=== PATIENT | female | born 1965 | race Caucasian/White ===

== ENCOUNTER 2019-04-17 10:20 | Emergency (ER) | payer OTHER ==
--- NOTE | 2019-04-17 10:24 | PDOC ---
History of Present Illness - General Chief Complaint: Pain Stated Complaint: PAIN TO RIGHT LOWER QUADRANT ON AND OFF 1 WEEK Time Seen by Provider: 04/17/19 10:23 History Source: Patient Exam Limitations: No Limitations - History of Present Illness Initial Comments: 04/17/19 10:40 Ms. Velasquez is a 54 yo F no significant past medical history presents to the ER with a complaint of abdominal pain. She states her symptoms began nine days ago. Initially pain was sharp, located in the right lower quadrant. She described it as feeling like an "ice pick". Pain was constant for several days and then moved more superiorly and changed in character. She noted more of an achy/discomfort feeling. She notes that she is also gassy. 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 HEAD, EYES, EARS, NOSE AND THROAT: No: change in vision, ear pain, discharge, sore throat, throat swelling. CARDIOVASCULAR: No: chest pain, lightheadedness, palpitations, syncope RESPIRATORY: No: cough, shortness of breath, wheezing, hemoptysis, stridor. GASTROINTESTINAL: (+) abdominal pain No: nausea, vomiting, diarrhea GENITOURINARY: No: dysuria, hematuria, frequency, urgency, flank pain. MUSCULOSKELETAL: No: back pain, neck pain, joint pain, muscle swelling or pain SKIN: No: lesions, pallor, rash or easy bruising. NEUROLOGIC: No: headache, vertigo, paresthesias, weakness ENDOCRINE: No: unexplained weight gain or loss HEMATOLOGIC/LYMPHATIC: No: anemia, easy bleeding, swelling nodes. ABDOMINAL PAIN FEMALE PHYSICAL EXAM GENERAL: The patient is in no acute distress. HEAD: Normal with no signs of trauma. EYES: PERRLA, EOMI, sclera anicteric, conjunctiva clear. ENT: Ears normal, nares patent, oropharynx clear without exudates. Moist mucous membranes. NECK: Normal range of motion, supple without lymphadenopathy, JVD, or masses. LUNGS: Breath sounds equal, clear to auscultation bilaterally. No wheezes, and no crackles. HEART:Regular rate and rhythm, normal S1 and S2 without murmur, rub or gallop. ABDOMEN: (+) right sided abdominal tenderness to palpation, Soft, hypoactive bowel sounds. No guarding, no rebound, no distention EXTREMITIES: Normal range of motion, no edema. No clubbing or cyanosis. No erythema, or tenderness. NEUROLOGICAL: Cranial nerves II through XII grossly intact. Normal speech. No focal neurological deficits. MUSCULOSKELETAL: Back non-tender to palpation, no CVA tenderness SKIN: Warm, Dry, normal turgor, no rashes or lesions noted. 04/17/19 11:05 Past History - Past Medical History Allergies/Adverse Reactions: Allergies Allergy/AdvReac Type Severity Reaction Status Date / Time No Known Allergies Allergy Unverified 04/17/19 10:22 Home Medications: Ambulatory Orders NK [No Known Home Medication] 04/17/19 ED Treatment Course - LABORATORY CBC & Chemistry Diagram: 04/17/19 11:04 04/17/19 11:04 Medical Decision Making - Medical Decision Making 04/17/19 11:10 54 yo F presenting with abdominal pain and no other symptoms Symptoms present for the past 9 days DD: Appendicitis, colitis, enteritis, gastroenteritis, obstruction, cholecystitis, gastritis, gastric ulcer, diverticulitis Will do: Labs CT with po and IV contrast (pt BMI 17.3) Transvaginal U/S Tylenol for pain 04/17/19 13:28 Laboratory Tests 04/17/19 04/17/19 04/17/19 11:04 11:04 11:04 WBC 11.8 H Hgb 13.6 Hct 40.6 Plt Count 344 BUN 18.0 Creatinine 0.6 Total Amylase 80 Lipase 289 Urine Blood 1+ H Urine Nitrite Negative Ur Leukocyte Esterase Negative Urine RBC 10-20 Urine WBC 0-2 Urine HCG, Qual Negative CT pending US pending *DC/Admit/Observation/Transfer Diagnosis at time of Disposition: Abdominal pain Qualifiers: Abdominal location: right lower quadrant Qualified Code(s): R10.31 - Right lower quadrant pain Ovarian cyst Qualifiers: Laterality: right Qualified Code(s): N83.201 - Unspecified ovarian cyst, right side - Discharge Dispostion Disposition: HOME Condition at time of disposition: Stable Decision to Admit order: No - Referrals Referrals: Perry Knight MD [Staff Physician] - Dominic Monroe MD [Staff Physician] - - Patient Instructions Printed Discharge Instructions: DI for Abdominal Pain-Adult, DI for Ovarian Cyst Additional Instructions: Return to the emergency department immediately with ANY new, persistent or worsening symptoms. Continue any medications as previously prescribed by your physician. You should follow up with your primary doctor as soon as possible regarding today's emergency department visit. . Please make sure your doctor reviews the results of your emergency evaluation. Thank you for coming to the [facility] today for your care. It was a pleasure to see you today. Please note that your evaluation is INCOMPLETE until you follow-up with your doctor. - Post Discharge Activity
[2019-04-17 10:43] VITALS: BMI 17.3
[2019-04-17] MEDS ORDERED: SODIUM CHLORIDE 1,000 ML IV STA ×2 (10:46→11:41)
[2019-04-17] MEDS ORDERED: ACETAMINOPHEN 1000 MG/100 ML VIAL (NON FORMULARY) IVPB ONE (10:46)
[2019-04-17] MEDS ORDERED: ACETAMINOPHEN INJECTION 100 ML IVPB ONE (10:50)
[2019-04-17 11:30] LABS: BASO % 0.8 % (0-2.0); EOS % 0.6 % (0-4.5); HEMATOCRIT 40.6 % (32.4-45.2); HEMOGLOBIN 13.6 GM/dl (10.7-15.3); LYMPH % 22.7 % (8-40); MCH 34.1 pg (25.7-33.7); MCHC 33.6 g/dl (32.0-36.0); MEAN CELL VOLUME 101.3 fl (80-96); MEAN PLT VOLUME 7.9 fl (7.5-11.1); MONO % 5.3 % (3.8-10.2); NEUT % 70.6 % (42.8-82.8); PLATELET COUNT 344 K/MM3 (134-434); RBC 4.01 M/mm3 (3.60-5.2); RDW 13.5 % (11.6-15.6); WHITE BLOOD COUNT 11.8 K/mm3 (4.0-10.8)
[2019-04-17 11:37] LABS: HCG,QUALITATIVE URINE Negative
[2019-04-17 11:39] LABS: BILIRUBIN,TOTAL 0.5 mg/dl (0.2-1); CALCIUM 8.6 mg/dl (8.5-10); CREATININE 0.6 mg/dl (0.55-1.3); POTASSIUM 3.7 mmol/L (3.5-5.1); TOT PROT 6.9 g/dl (6.4-8.2)
[2019-04-17 12:01] LABS: EPITHELIAL CELLS MODERATE /hpf
[2019-04-17 13:15] VITALS: TEMP 97.8
[2019-04-17 16:38] VITALS: BP 121/66; PULSE 52
== END 2019-04-17 16:42 | disposition home or self-care (01) ==
LOC: FER 10:20
PROC: 3E033NZ Introduction of Analgesics, Hypnotics, Sedatives into Peripheral Vein, Percutaneous Approach (ICD-10-PCS; principal; 2019-04-17)
PROC: 3E0337Z Introduction of Electrolytic and Water Balance Substance into Peripheral Vein, Percutaneous Approach (ICD-10-PCS; 2019-04-17)
DX: R10.31 Right lower quadrant pain (principal); N83.201 Unspecified ovarian cyst, right side
CPT/HCPCS: 36415; 74177-TC; 76830-TC; 76856-TC; 80053; 81003; 81015; 82150; 83690; 84703; 85025; 87086; 99283-25; J0131; J7030